=== PATIENT | male | born 1975 | race Caucasian/White ===

== ENCOUNTER → 2018-06-05 | Outpatient (CLI) | payer OTHER ==
--- NOTE | 2018-06-06 02:25 | REP ---
Clinical: Right knee pain. Technique: AP, lateral, bilateral oblique and sunrise views of the right knee. Findings: Mild degenerative changes include increased sclerosis along the tibial plateau with subtle cortical irregularity at the femoral condyles. [place] view demonstrates fraying along the anterior patellar margin suggesting mild tendinopathy. No acute fracture dislocation. No obvious effusion. Impression: Mild degenerative changes as noted above. Electronically Signed by Timothy Song MD 06/06/2018 02:16 A
== END ==
LOC: M RAD 09:44
PROVIDERS: ATTEND Surgery
DX: M17.11 Unilateral primary osteoarthritis, right knee (principal); M25.561 Pain in right knee